=== PATIENT | female | born 1990 | race Caucasian/White ===

== ENCOUNTER 2019-10-11 03:59 | Inpatient (IN) ==
[2019-10-11] MEDS ORDERED: Metoclopramide 10 MG/2 ML VIAL IVP PRN (04:18)
[2019-10-11] MEDS ORDERED: Lidocaine 1% 20 ML MDV ID PRN (04:18)
[2019-10-11] MEDS ORDERED: Ondansetron 4 MG/2 ML VIAL IVP PRN (04:18)
[2019-10-11] MEDS ORDERED: Azithromycin 500 MG in 0.9 % Sodium Chloride 250 ML IVPB ONE (04:18)
[2019-10-11] MEDS ORDERED: Naloxone 0.4 MG/ML INJ IVP PRN (04:18)
[2019-10-11] MEDS ORDERED: Famotidine 20 MG/2 ML VIAL IVP PRN (04:18)
[2019-10-11] MEDS ORDERED: miSOPROStoL 25 MCG TABLET PO PRN (04:21)
[2019-10-11] MEDS ORDERED: Ringers Solution, Lactated 1,000 ML IVC SCH (04:30)
[2019-10-11 04:55] LABS: Basophils % 0.3 %; Eosinophils # 0.2 K/mcL (0.0-0.6); Eosinophils % 1.6 %; Hematocrit 41.3 % (35.3-44.9); Hemoglobin 13.4 g/dL (11.5-15.4); Immature Granulocytes % 0.4 % (0-4); Lymphocytes # 1.8 K/mcL (0.6-4.6); Lymphocytes % 13.3 %; Mean Corpuscular HGB Conc 32.4 g/dL (31.6-35.5); Mean Corpuscular Hemoglobin 31.2 pg (28.0-33.3); Mean Corpuscular Volume 96.3 fL (83.0-100.0); Mean Platelet Volume 10.9 fL (9.4-12.4); Monocytes # 0.6 K/mcL (0.0-1.3); Monocytes % 4.6 %; Neutrophils # 10.6 K/mcL (1.6-8.9); Platelet Count 176 K/mcL (140-400); Red Blood Count 4.29 M/mcL (3.82-4.97); Red Cell Distribution Width 12.6 % (11.5-14.5); Segmented Neutrophils % 79.8 %; White Blood Count 13.3 K/mcL (4.3-11.1)
[2019-10-11 05:01] LABS: Amphetamine Screen,Urine Negative ng/mL (Cutoff=1000); Barbiturate Screen,Urine Negative ng/mL (Cutoff=200); Benzodiazepines Screen,Urine Negative ng/mL (Cutoff=200); Cannabinoid Screen,Urine Negative ng/mL (Cutoff = 50); Cocaine Screen,Urine Negative ng/mL (Cutoff= 300); Opiate Screen,Urine Negative ng/mL (Cutoff=300); Phencyclidine Screen,Urine Negative ng/mL (Cutoff=25)
[2019-10-11] MEDS ORDERED: EPHEDrine 50 MG/ML VIAL IVP PRN (08:45)
[2019-10-11] MEDS ORDERED: Epidural Premix (fent/bupiv) 110 ML EP SCH (08:45)
[2019-10-11] MEDS ORDERED: Oxytocin 20 units/ LR 1000 mL 20 UNIT/1,000 ML BAG IVC SCH ×2 (09:30→21:56)
[2019-10-11] MEDS: *HR* FentaNYL (PF) 100 MCG/2 ML VIAL IVP PRN ×2 (10:12→14:03)
[2019-10-11] MEDS ORDERED: Lanolin 7 G OINT...G. TP PRN (21:56)
[2019-10-11] MEDS ORDERED: Benzocaine/Menthol 56 GM AEROSOL SPRAY TP PRN (21:56)
[2019-10-11] MEDS ORDERED: Acetaminophen 325 MG TABLET PO PRN (21:56)
[2019-10-12] MEDS: Ibuprofen 600 MG TABLET PO PRN ×2 (00:42→11:00)
[2019-10-12] MEDS ORDERED: Prenatal Vit/FA 1 EACH TABLET PO SCH (09:00)
[2019-10-12 15:49] VITALS: BP 121/76
== END 2019-10-12 17:59 | disposition home or self-care (01) | DRG 560 ==
LOC: 1NENULAB 03:59 → 1NENUOBS 10-12 00:51
PROVIDERS: ADMIT Obstetrics & Gynecology; ATTEND Obstetrics & Gynecology